=== PATIENT | female | born 1965 | race Caucasian/White ===

== ENCOUNTER 2022-11-29 16:35 | Outpatient (CLI) | payer OTHER, SELFPAY | END 2022-11-29 16:36 | disposition home or self-care (01) | LOC: AMB 12-01 05:17 | PROVIDERS: PCP Family Medicine; Visit Provider Emergency Medicine Emergency Medical Services | DX: R11.2 Nausea with vomiting, unspecified (principal) | CPT/HCPCS: A0425; A0427 ==

== ENCOUNTER 2022-11-29 17:07 | Emergency (ER) | payer OTHER, SELFPAY ==
[2022-11-29] VITALS (7 sets, daily range): BP systolic 114–126; BP diastolic 77–83; PULSE 109–132; RESP 18; TEMP 36.2–36.3; O2SAT 95–98; BMI 27.0
--- NOTE | 2022-11-29 17:39 | ED.NAVMDI ---
HPI - Nausea/Vomiting/Diarrhea General Chief complaint: Nausea/Vomiting Stated complaint: Nausea, Vomiting, allergic reaction Time Seen by Provider: 11/29/22 17:30 History of Present Illness HPI Narrative: This 57-year-old female comes in reporting nausea, vomiting, and diarrhea since last evening. This occurred about 3 hours after taking her 1st injection of Wegovy for weight loss. Common adverse effects include her current symptoms. She does arrive with mild tachycardia which also can be an adverse effect of this medication. She does not report any pain except she gets some cramps in her legs occasionally. Related Data Home Medications Medication Instructions Recorded Confirmed duloxetine 60 mg capsule,delayed 120 mg PO DAILY 11/29/22 11/29/22 release semaglutide (weight loss) 0.5 mg subcut 11/29/22 mg/0.5 mL subcutaneous pen injector (Wegovy) Previous Rx's Medication Instructions Recorded ketorolac 10 mg tablet 10 mg PO Q8H 5 days #15 tabs 11/29/22 ondansetron HCl 4 mg tablet 4 mg PO Q6H #20 tabs 11/29/22 Allergies Allergy/AdvReac Type Severity Reaction Status Date / Time Penicillins Allergy Verified 11/29/22 17:18 Review of Systems Status of ROS: Reports: 10 or more systems reviewed and unremarkable except as noted in History and below Narrative: Constitutional: No fevers, no weight gain or loss. Eyes: No discharge. No vision changes. HENT: No congestion, no sore throat, no ear pain. Cardiovascular: No chest pain, no palpitations. Respiratory: No shortness of breath, no wheezes, no cough. Gastrointestinal: Nausea, vomiting, and diarrhea. She has no abdominal pain except when vomiting. Genitourinary: No dysuria, no hematuria. Musculoskeletal: Normal range of motion. Skin: No rashes, no pruritis. Neurological: No dizziness, weakness, sensory change, speech change. Endo/Heme/Allergies: No bruising or bleeding. No polydipsia. Pysch: no suicidality, no anxiety, no insomnia. All other systems reviewed and are negative. [facility] Social History Smoking Status: Never smoker Second hand tobacco smoke exposure: No How often do you have a drink containing alcohol: 2-3 times a week How many standard drinks containing alcohol do you have on a typical day: 1 or 2 How often do you have six or more drinks on one occasion: Never AUDIT-C Alcohol total score: 3 Non-prescribed substance use: denies use service: No Exam Narrative: Exam Narrative: Constitutional: Well-developed, well-nourished, no acute distress. HEENT: Normocephalic, atraumatic. Neck: Normal range of motion. Nontender. Supple. Heart: Regular. No murmurs. Tachycardia. Intact distal pulses. Lungs: Clear to auscultation. No chest discomfort. No wheezes, rhonchi, or rales. Abdomen: Normal bowel sounds. Nontender. No rebound tenderness. Genitalia: Deferred. Back: No midline tenderness. Normal range of motion. Extremities: Normal range of motion. No injury. Skin: Intact. No rash. Warm. No erythema or pallor. Neurologic: No altered sensation. No weakness. Alert and oriented. Psychiatric: No suicidality. No anxiety or depression. No insomnia. Nursing notes and vitals signs are reviewed. Const: Vital Signs, click to edit/add: Vital Signs - 24 hr 11/29/22 17:14 Temperature 97.2 F L Pulse Rate [Right Pulse Oximeter] 109 H Respiratory Rate 18 Blood Pressure [Ri ght Upper Arm] 114/81 Pulse Oximetry 97 Oxygen Delivery Me thod Room Air Course Vital Signs Vital signs: Initial Vital Signs Temperature 97.2 F L 11/29/22 17:14 Temperature Source Temporal Artery Scan 11/29/22 17:14 Pulse Rate 109 H 11/29/22 17:14 Respiratory Rate 18 11/29/22 17:14 Blood Pressure 114/81 11/29/22 17:14 Blood Pressure Mean 92 11/29/22 17:14 Blood Pressure Position Sitting 11/29/22 17:14 Pulse Oximetry 97 11/29/22 17:14 Oxygen Delivery Method Room Air 11/29/22 17:14 Vital Signs Temperature 97.2 F L 11/29/22 17:14 Pulse Rate 109 H 11/29/22 17:14 Respiratory Rate 18 11/29/22 17:14 Blood Pressure 114/81 11/29/22 17:14 Pulse Oximetry 97 11/29/22 17:14 Oxygen Delivery Method Room Air 11/29/22 17:14 Temperature 97.2 F L 11/29/22 17:14 Pulse Rate 109 H 11/29/22 17:14 Respiratory Rate 18 11/29/22 17:14 Blood Pressure 114/81 11/29/22 17:14 Pulse Oximetry 97 11/29/22 17:14 Oxygen Delivery Method Room Air 11/29/22 17:14 MDM - Nausea/Vomiting/Diarrhea MDM Narrative Medical decision making narrative: This patient took a injectable medicine for weight loss yesterday and several hours after that had nausea, vomiting, and diarrhea that have persisted since then. She received IV fluids along with Zofran 4 mg and Toradol 15 mg. She states that her nausea is much better and overall she is feeling better. Lab results returned with normal findings. She is okay to be discharged home. She did received prescriptions for Zofran and Toradol. Lab Data Labs: Lab Results 11/29/22 Range/Units 18:10 WBC 9.51 (4.50-11.00) K/uL RBC 4.90 (4.00-5.20) m/uL Hgb 15.7 (12.0-16.0) gm/dL Hct 47.7 (33.0-51.0) % MCV 97 (80-100) fL MCH 32 (26-34) pg MCHC 33 (32-36) gm/dL RDW Coeff of Kameron 12.9 (11.5-15.5) % Plt Count 310 (140-440) K/uL Neut % (Auto) 81.3 H (42.0-72.0) % Lymph % (Auto) 11.5 L (20-44) % Placer % (Auto) 5.4 (0.0-11.0) % Eos % (Auto) 1.1 (0.0-7.0) % Baso % (Auto) 0.5 (0.0-3.0) % Neut # (Auto) 7.70 H (1.7-7.0) K/uL Lymph # (Auto) 1.10 (0.90-2.90) K/uL Placer # (Auto) 0.50 (0.00-0.90) K/UL Eos # (Auto) 0.10 (0.00-0.50) K/uL Baso # (Auto) 0.05 (0.00-0.30) K/uL Abs Immat Gran (auto) 0.02 (0.00-0.30) K/uL Imm/Tot Granulo (auto) 0.2 % Sodium 139 (135-149) mmol/L Potassium 3.8 (3.6-5.1) mmol/L Chloride 106 (96-114) mmol/L Carbon Dioxide 21 (20-32) mmol/L BUN 16 (7-30) mg/dL Creatinine 0.7 (0.5-1.5) mg/dL Estimated Creat Clear 81.71 Estimated GFR 102 ml/min Glucose 99 (60-115) mg/dL Calcium 9.6 (8.4-10.6) mg/dL Discharge Plan Discharge Clinical Impression: Drug-induced nausea and vomiting Patient Disposition: Home, Self-Care Condition: Improved Additional Instructions: Increase diet as tolerated. Take medication as needed and directed. Follow up with MD or return if worsening. Prescriptions: New ondansetron HCl 4 mg tablet 4 mg PO Q6H Qty: 20 0RF ketorolac 10 mg tablet 10 mg PO Q8H 5 Days Qty: 15 0RF No Action duloxetine 60 mg capsule,delayed release(DR/EC) 120 mg PO DAILY Wegovy 0.5 mg/0.5 mL pen injector subcut Follow Up/Referrals: Jhony Madrigal MD [Primary Care Provider] - Stand Alone Forms: [employer] Info Instructions
[2022-11-29] MEDS: 0.9 % SODIUM CHLORIDE 1000 ml 1,000 ML IV (18:14)
[2022-11-29] MEDS: ONDANSETRON 2 MG/ML inj 4 MG IVP (18:15)
[2022-11-29] MEDS: KETOROLAC 30 MG/ML inj IVP (18:20)
[2022-11-29 18:30] LABS: Basophils Absolute Auto 0.05 K/uL (0.00-0.30); Basophils Percent Auto 0.5 % (0.0-3.0); Eosinophils Percent Auto 1.1 % (0.0-7.0); Hematocrit 47.7 % (33.0-51.0); Hemoglobin* 15.7 gm/dL (12.0-16.0); Immature Granulocytes Abs Auto 0.02 K/uL (0.00-0.30); Immature Granulocytes Pct Auto 0.2 %; Lymphocytes Percent Auto 11.5 % (20-44); Mean Corpuscular HGB Conc 33 gm/dL (32-36); Mean Corpuscular Hemoglobin 32 pg (26-34); Mean Corpuscular Volume 97 fL (80-100); Monocytes Percent Auto 5.4 % (0.0-11.0); Neutrophils Percent Auto 81.3 % (42.0-72.0); Platelet Count* 310 K/uL (140-440); RDW Coefficient of Variation % 12.9 % (11.5-15.5); White Blood Count* 9.51 K/uL (4.50-11.00)
[2022-11-29 18:37] LABS: Slide Review Reflex No
[2022-11-29 18:39] LABS: Chloride* 106 mmol/L (96-114); Potassium* 3.8 mmol/L (3.6-5.1); Sodium* 139 mmol/L (135-149)
[2022-11-29 18:42] LABS: Carbon Dioxide* 21 mmol/L (20-32); Creatinine* 0.7 mg/dL (0.5-1.5); Est. Creatinine Clearance* 81.71; Estimated Glomerular Filt Rate 102 ml/min
[2022-11-29 18:43] LABS: Blood Urea Nitrogen* 16 mg/dL (7-30); Calcium* 9.6 mg/dL (8.4-10.6); Glucose* 99 mg/dL (60-115)
--- NOTE | 2022-11-29 18:48 | ED.NURSE ---
checked on pt about 30 min after med administration (see EMR). pt stated pain has decreases to 3 but is still nausea
--- NOTE | 2022-11-29 19:45 | ED.NURSE ---
Pt received a total of 8mg IV Zofran (4mg by EMS, 4mg by Legal Billing Clerk) doctor order an addition 8mg Zofran PO for discharge after discussion MD about Zofran not improving nausea he switched order to 1mg Ativan
[2022-11-29] MEDS: LORazepam 2 MG/ML inj 1 MG IM (19:56)
== END 2022-11-29 20:05 | disposition home or self-care (01) ==
PROVIDERS: Emergency Provider Emergency Medicine Emergency Medical Services; PCP Family Medicine
DX: R11.2 Nausea with vomiting, unspecified (principal); T46.4X5A Adverse effect of angiotensin-converting-enzyme inhibitors, initial encounter
CPT/HCPCS: 36415; 80048; 85025; 96372; 96374; 96375; 99283; 99284; A0425; A0427; J1885; J2060; J2405; J7030